=== PATIENT | male | born 1995 | race Hispanic/Latino ===

== ENCOUNTER 2018-09-28 23:25 | Inpatient (IN) | payer SELFPAY ==
[2018-09-29 01:20] LABS: #Basophils 0.1 thou/uL (0.0-0.2); #Eosinphils 0.4 thou/uL (0.0-0.7); #Lymphocytes 2.8 thou/uL (1.20-3.40); #Monocytes 0.5 thou/uL (0.11-0.59); #Neutrophils 3.9 thou/uL (1.40-6.50); %Basophils 1.5 % (0.0-1.0); %Eosinophils 4.8 % (0.0-10.0); %Lymphocytes 36.3 % (21.0-51.0); %Monocytes 6.5 % (0.0-10.0); %Neutrophils 50.8 % (42.0-75.0); Hemoglobin 14.4 g/dL (14.0-18.0); Mean Corpuscular HGB CONC 33.5 g/dL (32.0-36.0); Mean Corpuscular Hemoglobin 30.1 pg (27.0-31.0); Mean Corpuscular Volume 89.9 fL (78.0-98.0); Mean Platelet Volume 7.7 fL (7.4-10.4); Platelet Count 336 thou/uL (130-400); Red Blood Cell (RBC) Count 4.79 mill/uL (4.70-6.10); White Blood Cell (WBC) Count 7.6 thou/uL (4.8-10.8)
[2018-09-29 01:45] LABS: ALT (SGPT) 33 U/L (8-55); AST (SGOT) 27 U/L (5-34); Albumin 4.7 g/dL (3.5-5.0); Alkaline Phosphatase 109 U/L (40-150); Anion Gap 12 mmol/L (10-20); BUN (Urea Nitrogen) 13 mg/dL (8.9-20.6); Bilirubin, Total 0.4 mg/dL (0.2-1.2); Calc. Creatinine Clearance 0 mL/min (70-130); Calcium 9.9 mg/dL (7.8-10.44); Carbon Dioxide 27 mmol/L (22-29); Chloride 103 mmol/L (98-107); Estimated GFR-MDRD Greater than 90; Globulin 3.4 g/dL (2.4-3.5); Glucose 102 mg/dL (70-105); Potassium 3.8 mmol/L (3.5-5.1); Protein, Total 8.1 g/dL (6.0-8.3); Sodium 138 mmol/L (136-145)
[2018-09-29] MEDS ORDERED: Piperacillin/Tazobactam 4.5 GM VIAL ONE (01:45)
[2018-09-29] MEDS ORDERED: diphenhydrAMINE 50 MG/ML VIAL ONE (03:36)
[2018-09-29] MEDS ORDERED: Ondansetron PF 4 MG/2 ML Vial IVP PRN (04:59)
[2018-09-29] MEDS ORDERED: Acetaminophen 325 MG TAB PO PRN (04:59)
[2018-09-29] MEDS ORDERED: Ondansetron ODT 4 MG TAB PO PRN (04:59)
[2018-09-29] MEDS ORDERED: Calcium Carbonate 500 MG ChewTAB PO PRN (04:59)
[2018-09-29] MEDS ORDERED: Vancomycin HCl 1 GM in Premix Bag 1 BAG IVPB SCH (05:15)
[2018-09-29 05:26] VITALS: BMI 42.7
[2018-09-29] MEDS: Sodium Chloride 0.9% 1,000 ML IV SCH ×2 (06:00→20:36)
[2018-09-29] MEDS ORDERED: Boostrix 0.5 ML VIAL IM ONE (06:23)
[2018-09-29] MEDS ORDERED: Adacel (T-DAP) 0.5 ML SYRINGE IM ONE (07:30)
--- NOTE | 2018-09-29 07:33 | HP ---
PRIMARY CARE PHYSICIAN: None. CHIEF COMPLAINT: Left lower extremity swelling along with drainage from the wound over the left knee. HISTORY OF PRESENT ILLNESS: The patient is a 23-year-old male, who presented to the emergency room with above complaints. Approximately a month ago, the patient had a superficial injury over his left knee. He had a small scab that eventually fell off. He had a small open wound that gradually became larger. Over the past few days, he noticed increased drainage from the wound along with significant swelling and redness of the left leg. He denies any fever or chills. No recent immobilization, travel, or any of the injury reported. He did not seek any medical attention. Last night, the drainage got significantly worse, for which he presented to the emergency room. PAST MEDICAL HISTORY: Reviewed with the patient and none. PAST SURGICAL HISTORY: Reviewed with the patient and none. SOCIAL HISTORY: The patient currently lives at home with his family. No current use of smoking, alcohol, or drug use. FAMILY HISTORY: Positive for diabetes in the mother and brother. ALLERGIES: NO KNOWN DRUG ALLERGIES. CURRENT HOME MEDICATIONS: Reviewed with the patient and none. REVIEW OF SYSTEMS: All other review of systems was reviewed and was found negative. PHYSICAL EXAMINATION: VITAL SIGNS: Temperature of 98.6, respirations of 16, pulse rate of 72, blood pressure of 149/84, with O2 saturation 97% on room air. GENERAL: A 23-year-old male in no apparent distress. Pain controlled at this time. HEENT: Head, atraumatic and normocephalic. Sclerae anicteric. Moist mucous membrane. No oral lesion. NECK: Supple. No JVD. No carotid bruit. LUNGS: Clear to auscultation bilaterally. No wheezing, rales, or rhonchi. HEART: S1 and S2 present. Regular rate and rhythm. No murmurs, rubs, or gallops appreciated. ABDOMEN: Soft, nontender. Bowel sounds present. No rebound or guarding. EXTREMITIES: There is significant erythema along with swelling and tenderness in the left flank. There is approximately 1 inch diameter wound over the anterior aspect of the left knee with irregular margins. There is serosanguineous drainage from the wound. There is significant erythema around the wound. SKIN: As discussed above. LYMPH NODE: No palpable lymph nodes in the neck. PERIPHERAL VASCULAR: Radial pulses palpable bilaterally. MUSCULOSKELETAL: No joint swelling or tenderness. Range of motion is normal in the left knee. LABORATORY FINDINGS: WBC 7.6 with hemoglobin 14.4, hematocrit 43.1, platelets of 336. Chemistry showed sodium 138, potassium 3.8, chloride 103, bicarb 27, BUN 13, creatinine 0.96, glucose of 102. LFTs in normal range. IMAGING STUDIES: X-ray of the knee by my review was negative for significant bony abnormality. Official report pending at this time. Left lower extremity Doppler has been done, report is pending at this time. IMPRESSION: 1. Left lower extremity cellulitis with infected ulcer over the anterior aspect of the left knee. 2. Morbid obesity with a body mass index of 42.7. 3. Family history of diabetes mellitus type 2. PLAN: The patient will continue vancomycin and Zosyn. We will await official knee x-ray and left lower extremity Doppler report. Consult Wound Care. Gentle IV hydration. We will check ESR and CRP. We will make sure that his tetanus vaccination is up-to-date. Plan of care was discussed with the patient and the family at the bedside, they stated understanding. Job ID: [id number]
--- NOTE | 2018-09-29 08:09 | ULT ---
PRELIMINARY REPORT/[facility]/EMERGENCY AFTER HOURS PROCEDURE: EXAM: US Duplex Left Lower Extremity Veins, Limited EXAM DATE/TIME: 09/29/2018 1:16 AM CLINICAL HISTORY: 23 years old, male; Other: Injured knee 1mo ago playing sports- now swollen, painful, draining TECHNIQUE: Imaging protocol: Real-time Duplex ultrasound of the Left Lower Extremity with 2-D malik scale, color Doppler flow and spectral waveform analysis. Limited exam focused on the left lower extremity v eins. COMPARISON: No relevant prior studies available. FINDINGS: No visible clot in the included veins. The included veins appear normally compressible. Duplex Doppler evaluation demonstrates flow in the evaluated veins. Some mildly enlarged lymph nodes in left groin region, measuring up to 17 mm. IMPRESSION: 1. No evidence of acute left lower extremity DVT. 2. Other findings discussed above. Thank you for allowing us to participate in the care of your patient. Dictated and Authenticated by: Mat Reyna MD 09/29/2018 2:17 AM Central Time ([place] & [place]) FINAL REPORT by Dr. Robbins: Emergency after-hours study ULTRASOUND DOPPLER DUPLEX VENOUS LEFT LOWER EXTREMITY: DATE: 09/29/2018 HISTORY: 23-year-old male with pain and edema in left lower extremity. TECHNIQUE: Grayscale, color-flow, and spectral analysis, of major veins of left lower extremity. FINDINGS: There is demonstration of blood flow with normal compressibility, of the left common femoral, profund a femoral, greater saphenous, femoral, popliteal, and posterior tibial, veins. Agree with preliminary report by [facility]. IMPRESSION: Negative. No deep venous thrombosis of left lower extremity. Transcribed Date/Time: 09/29/2018 10:22 AM
--- NOTE | 2018-09-29 08:29 | RAD ---
XR Knee Lt 4 View STANDARD History: Wound Comparison: None. Findings: Mild soft tissue swelling. No acute fracture. Some ossification the proximal interosseous m embrane the medial fibula. No significant joint effusion. Impression: No acute osseous abnormality.
[2018-09-29] MEDS: Saccharomyces boulardii 250 MG CAP PO SCH (08:52)
[2018-09-29] MEDS: Piperacillin/Tazobactam 3.375 GM in Sodium Chloride 0.9% 100 ML IVPB SCH ×3 (08:52→20:30)
[2018-09-29] MEDS: Vancomycin HCl 1.5 GM in Sodium Chloride 0.9% 250 ML 300 ML IVPB SCH ×2 (11:38→17:39)
--- NOTE | 2018-09-29 17:35 | PDOC.PN ---
- Subjective Encounter Start Date: 09/29/18 Encounter Start Time: 17:34 Mr. Raza was seen today in follow-up of abscess and cellulitis of the left knee. He says the area is much better. - Objective Resuscitation Status - Order Detail: 09/29/18 04:59 Resuscitation Status Routine Resuscitation Status: FULL: Full Resuscitation MAR Reviewed: Yes Vital Signs & Weight: Vital Signs (12 hours) Temp Pulse Resp BP Pulse Ox 09/29/18 15:37 98.3 F 69 16 124/80 98 09/29/18 11:39 97.8 F 69 20 153/98 H 99 09/29/18 07:52 97.8 F 68 20 134/87 99 Weight Weight 256 lb 12.8 oz Result Diagrams: 09/29/18 01:07 09/29/18 01:07 Phys Exam - Physical Examination HEENT: PERRLA Respiratory: no wheezing, no rales, no rhonchi, clear to auscultation bilateral Cardiovascular: RRR, no significant murmur, no rub Gastrointestinal: soft, non-tender, no distention, positive bowel sounds Musculoskeletal: edema present + wound photos were noted, + mild erythema of the calf, Dx/Plan (1) Cellulitis of knee, right Code(s): L03.115 - CELLULITIS OF RIGHT LOWER LIMB Status: Acute (2) Morbid obesity Code(s): E66.01 - MORBID (SEVERE) OBESITY DUE TO EXCESS CALORIES Status: Chronic - Plan * Cellulitis of the right knee- continue Vancomycin and Zosyn one more issa * Hopefully home tomorrow on oral antibiotics .
[2018-09-30 01:47] LABS: Vancomycin, Trough 12.8 ug/mL
[2018-09-30] MEDS: Piperacillin/Tazobactam 3.375 GM in Sodium Chloride 0.9% 100 ML IVPB SCH ×2 (02:00→08:05)
[2018-09-30] MEDS: Vancomycin HCl 1.5 GM in Sodium Chloride 0.9% 250 ML 300 ML IVPB SCH ×2 (02:01→02:56)
[2018-09-30] MEDS ORDERED: Vancomycin HCl 1.75 GM in Sodium Chloride 0.9% 500 ML IVPB SCH ×2 (03:00→10:00)
[2018-09-30 05:35] LABS: #Eosinphils 0.3 thou/uL (0.0-0.7); #Lymphocytes 2.1 thou/uL (1.20-3.40); #Monocytes 0.5 thou/uL (0.11-0.59); #Neutrophils 3.3 thou/uL (1.40-6.50); %Basophils 0.6 % (0.0-1.0); %Eosinophils 5.6 % (0.0-10.0); %Monocytes 7.3 % (0.0-10.0); %Neutrophils 52.5 % (42.0-75.0); Hemoglobin 13.4 g/dL (14.0-18.0); Mean Corpuscular HGB CONC 34.5 g/dL (32.0-36.0); Mean Corpuscular Hemoglobin 31.4 pg (27.0-31.0); Mean Corpuscular Volume 91.1 fL (78.0-98.0); Mean Platelet Volume 7.6 fL (7.4-10.4); Platelet Count 290 thou/uL (130-400); RBC Distribution Width 11.8 % (11.5-14.5); Red Blood Cell (RBC) Count 4.25 mill/uL (4.70-6.10); White Blood Cell (WBC) Count 6.2 thou/uL (4.8-10.8)
[2018-09-30 05:56] LABS: Anion Gap 12 mmol/L (10-20); BUN (Urea Nitrogen) 14 mg/dL (8.9-20.6); Calc. Creatinine Clearance 207 mL/min (70-130); Calcium 8.9 mg/dL (7.8-10.44); Carbon Dioxide 26 mmol/L (22-29); Chloride 105 mmol/L (98-107); Estimated GFR-MDRD Greater than 90; Glucose 89 mg/dL (70-105); Potassium 4.5 mmol/L (3.5-5.1); Sodium 138 mmol/L (136-145)
[2018-09-30 07:48] VITALS: BP 117/70; TEMP 97.8
[2018-09-30] MEDS: Saccharomyces boulardii 250 MG CAP PO SCH (08:05)
--- NOTE | 2018-09-30 10:11 | PDOC.PN ---
- Subjective Encounter Start Date: 09/30/18 Encounter Start Time: 10:09 Mr. Raza was seen today in follow-up. He says his knee is much better. He has less swelling, and is able to bend it better. - Objective Resuscitation Status - Order Detail: 09/29/18 04:59 Resuscitation Status Routine Resuscitation Status: FULL: Full Resuscitation MAR Reviewed: Yes Vital Signs & Weight: Vital Signs (12 hours) Temp Pulse Resp BP Pulse Ox 09/30/18 07:46 97.8 F 71 16 117/70 98 09/30/18 03:40 98.1 F 62 18 122/60 99 09/30/18 00:05 97.9 F 60 18 124/80 97 Weight Weight 256 lb 12.8 oz I&O: 09/29/18 09/30/18 10/01/18 06:59 06:59 06:59 Intake Total 1190 Balance 1190 Result Diagrams: 09/30/18 05:08 09/30/18 05:08 Phys Exam - Physical Examination HEENT: PERRLA Respiratory: no wheezing, no rales, no rhonchi, clear to auscultation bilateral Cardiovascular: RRR, no significant murmur, no rub Gastrointestinal: soft, non-tender, no distention, positive bowel sounds Musculoskeletal: edema present + mild erythema of the left lower extremity Dx/Plan (1) Morbid obesity Code(s): E66.01 - MORBID (SEVERE) OBESITY DUE TO EXCESS CALORIES Status: Chronic (2) Cellulitis of left leg Code(s): L03.116 - CELLULITIS OF LEFT LOWER LIMB Status: Acute - Plan * Cellulitis is improving * He is stable for discharge home.
--- NOTE | 2018-09-30 10:52 | DIS ---
DATE OF ADMISSION: 09/29/2018 DATE OF DISCHARGE: 09/30/2018 PRIMARY CARE PHYSICIAN: The patient does not have a primary care physician. DISCHARGE DISPOSITION: Home. PRIMARY DISCHARGE DIAGNOSIS: 1. Cellulitis of the left lower extremity. 2. Morbid obesity. DISCHARGE MEDICATIONS: Bactrim DS one tablet twice a day for 7 days. He was warned about sun exposure. PROCEDURES DONE DURING THE ADMISSION: The patient had a lower extremity venous Doppler, which was negative for DVT. The code status is full code. ALLERGIES: NO KNOWN DRUG ALLERGIES. HOSPITAL COURSE: Mr. Ry Smith is a pleasant 23-year-old gentleman, who presented to the emergency room after he had scraped his knee earlier while playing soccer and noticed a very deep bruise and there were some scratches on it. He says later it developed into a scab and then got progressively worse and started to appear like it was going to drain. The patient came to the ER for evaluation. He had not been on any previous antibiotics prior; due to the location of the infection he was placed in observation, started on IV antibiotics and the wound area was stressed. He improved over the course of the next day and a half or so in the hospital and was discharged home on Bactrim. Preliminary results of the wound were growing Staph as well as non-hemolytic strep. He was asked to have close outpatient followup. His intends to get him set up at the [facility] clinic and he will also be off work for a couple of days. Job ID: [id number]
== END 2018-09-30 11:00 | disposition home or self-care (01) | DRG 603 ==
LOC: ERS 23:25 → OBSVTOIN 09-29 03:14 → SURG A 09-29 03:14
PROVIDERS: ADMIT Internal Medicine; ATTEND Internal Medicine
DX: L03.116 Cellulitis of left lower limb (principal); Z68.41 Body mass index [BMI] 40.0-44.9, adult; E66.01 Morbid (severe) obesity due to excess calories; L02.416 Cutaneous abscess of left lower limb
CPT/HCPCS: 36415; 80048; 80053; 80202; 83605; 85025; 85652; 86140; 87040; 87070; 87077; 87186; 87205; 90715; J1200; J2543; J3370; J3490; J7050